=== PATIENT | male | born 1960 | race Caucasian/White ===

== ENCOUNTER 2018-09-18 12:02 | Observation (INO) ==
[2018-09-18] MEDS ORDERED: 0.9 % Sodium Chloride 1,000 ML IVC ONE (12:21)
[2018-09-18 12:46] LABS: Basophils # 0.1 K/mcL (0.0-0.2); Basophils % 0.7 %; Eosinophils # 0.1 K/mcL (0.0-0.6); Eosinophils % 1.6 %; Hematocrit 50.4 % (37.5-50.1); Hemoglobin 17.4 g/dL (12.9-16.9); Lymphocytes # 1.6 K/mcL (0.6-4.6); Lymphocytes % 19.9 %; Mean Corpuscular HGB Conc 34.5 g/dL (31.6-35.5); Mean Corpuscular Hemoglobin 29.2 pg (28.0-33.3); Mean Corpuscular Volume 84.7 fL (83.0-100.0); Mean Platelet Volume 9.9 fL (9.4-12.4); Monocytes # 0.8 K/mcL (0.0-1.3); Monocytes % 9.5 %; Neutrophils # 5.5 K/mcL (1.6-8.9); Platelet Count 234 K/mcL (140-400); Red Blood Count 5.95 M/mcL (4.19-5.50); Red Cell Distribution Width 12.4 % (11.5-14.5); Segmented Neutrophils % 67.3 %
--- NOTE | 2018-09-18 12:52 | Emergency Department Note ---
Disposition Clinical Impression: Weakness, Exertional chest pain Chest pain Qualifiers: Chest pain type: unspecified Qualified Code(s): R07.9 - Chest pain, unspecified Disposition: Admitted As Inpatient Condition: Fair Referrals: Ruel Boudreaux MD [Primary Care Provider] - Forms: ED Satisfaction Letter Time of Disposition: 16:47 Arrhythmia/Palpitations HPI - General Chief Complaint: ED Arrhythmia/Palpitations Stated Complaint: Hypertension,HHR Time Seen by Provider: 09/18/18 12:14 Source: patient Mode of arrival: ambulatory Limitations: no limitations Nursing Notes Reviewed: Yes Vital Signs Reviewed: Yes - History of Present Illness HPI Narrative: patient presents to the ED with the chief complaint of not feeling well. Reports that she started getting "sick" about 1 week ago. States he became very weak and didn't feel right. States that has progressed. Reports feeling very tired and sweaty. Has a h/o HTN and is on amlodipine/metoprolol and has been compliant. States he went to his PCP today and was sent over for further evaluation due to tachycardia and hypertension 160/100. He denies any chest pain or shortness of breath. Denies and abdominal pain but has had consistent L flank pain that is not worse with movement and no h/o kidney stones. No urinary complaints. No urinary/fecal incont. No neurological complaints in lower ext or weakness. - Related Data Home Medications Medication Instructions Recorded Confirmed Atenolol 50 mg PO BID 10/28/17 09/18/18 RX: Amlodipine Besylate 10 mg PO DAILY 09/18/18 09/18/18 Sildenafil Citrate [Revatio] 0 mg PO DAILY PRN 09/18/18 09/18/18 Allergies Allergy/AdvReac Type Severity Reaction Status Date / Time Penicillins Allergy See Verified 09/18/18 12:11 Comments Sulfa (Sulfonamide Allergy See Verified 09/18/18 12:11 Antibiotics) Comments Review of Systems: As reviewed in the HPI. All other systems reviewed are negative or normal. Past Medical History - Past Medical History Attestation: Yes The following information was validated with the patient. Source: patient Medical history: Reports: hypertension, other Psychiatric history: Reports: no psych history - Social History Smoking Status: Current every day smoker Smokeless Tobacco Status: No Alcohol use: Reports: none Drug use: Reports: none Physical Exam CONSTITUTIONAL: [ill appearing, alert and in no acute distress] EYES: [EOMI, clear conjunctiva, PERRLA] HENT: [Normocephalic, atraumatic, moist mucus membranes, normal oropharynx] NECK: [normal inspection, full ROM, trachea midline, no obvious swelling] PULMONARY: [normal lung sounds bilaterally, normal chest rise and fall, no respiratory distress or stridor, no wheezes, no rales, no rhonchi CARDIOVASCULAR: [tachycardic, regular rhythm, normal heart sounds, no murmurs, distal extremities are warm and well perfused] GASTROINSTESTINAL: [soft, non-tender, non-rigid, non-distended, no guarding, no rebound, normal bowel sounds] GENITOURINARY/RECTAL: [deferred] NEUROLOGIC: [Alert, oriented x3, normal speech, moves all extremities] EXTREMITIES: [Normal inspection, full ROM, no tenderness, no pedal edema, normal capillary refill] MUSCULOSKELETAL: [no gross deformities, atraumatic, no reproducible L flank pain but reports burning type pain] SKIN: [No cyanosis, + diaphoresis, normal color, warm, no rash] PSYCHIATRIC: [slightly anxious] Course Course Narrative: patient with hypertension and tachycardia. Having exertional symptoms. also having L flank pain. will get labs and CTA to r/o dissection. labs and imaging are back. however, patient tried to get up to go to bathroom and had repeat chest pain and got very fatigued. does raise concern over atypical ACS vs valvular incompetence. will admit for echo and cardiac workup. Vital Signs Temperature 98.4 F 09/18/18 12:10 Pulse Rate 135 09/18/18 12:10 Respiratory Rate 16 09/18/18 12:10 Blood Pressure 158/98 09/18/18 12:10 O2 Sat by Pulse Oximetry 95 09/18/18 12:10 Temperature 98.4 F 09/18/18 13:05 Pulse Rate 96 09/18/18 13:12 Respiratory Rate 20 09/18/18 13:12 Blood Pressure 164/107 09/18/18 13:12 O2 Sat by Pulse Oximetry 95 09/18/18 13:12 Oxygen Delivery Oxygen Delivery Room Air Arrhythmia/Palpitations - Medical Records Medical records reviewed: Yes I reviewed the patient's medical records. - Lab Data Lab results reviewed: Yes I reviewed the patient's lab results. Result diagrams: 09/18/18 12:21 09/18/18 12:21 Lab Results 09/18/18 09/18/18 09/18/18 Range/Units 12:21 12:21 12:21 WBC 8.1 (4.3-11.1) K/mcL RBC 5.95 H (4.19-5.50) M/mcL Hgb 17.4 H (12.9-16.9) g/dL Hct 50.4 H (37.5-50.1) % MCV 84.7 (83.0-100.0) fL MCH 29.2 (28.0-33.3) pg MCHC 34.5 (31.6-35.5) g/dL RDW 12.4 (11.5-14.5) % Plt Count 234 (140-400) K/mcL MPV 9.9 (9.4-12.4) fL Immature Gran % 1.0 (0-4) % Seg Neutrophils % 67.3 % Lymphocytes % 19.9 % Monocytes % 9.5 % Eosinophils % 1.6 % Basophils % 0.7 % Neutrophils # 5.5 (1.6-8.9) K/mcL Lymphocytes # 1.6 (0.6-4.6) K/mcL Monocytes # 0.8 (0.0-1.3) K/mcL Eosinophils # 0.1 (0.0-0.6) K/mcL Basophils # 0.1 (0.0-0.2) K/mcL PT 11.6 (9.4-12.1) Seconds INR 1.0 APTT 36.5 H (26.0-36.0) Seconds D-Dimer 282 (0-500) ng/mLFEU Sodium 137 (136-145) mEq/L Potassium 3.7 (3.5-5.1) mEq/L Chloride 103 (98-107) mEq/L Carbon Dioxide 22 L (23-29) mEq/L BUN 16 (8-23) mg/dL Creatinine 1.09 (0.70-1.30) mg/dL Est GFR ( Amer) > 60 (> 60) Est GFR (Non-Af Amer) > 60 (> 60) BUN/Creatinine Ratio 15 (6-26) Glucose 181 H (70-105) mg/dL Calculated Osmolality 290 (280-300) Lactic Acid (0.5-2.2) mmol/L Calcium 9.6 (8.6-10.3) mg/dL Troponin I < 0.03 (< 0.04) ng/mL TSH 1.658 (0.340-5.600) mcIU/mL Urine Color (Yellow) Urine Clarity (Clear) Urine pH (5.0-8.0) pH Units Ur Specific [place] (1.010-1.025) Urine Protein (Neg-Trace) mg/dL Urine Glucose (UA) (Normal) mg/dL Urine Ketones (Negative) mg/dL Urine Blood (Negative) Urine Nitrite (Negative) Urine Bilirubin (Negative) Urine Urobilinogen (Normal) mg/dL Ur Leukocyte Esterase (Negative) Urine Microscopic RBC (0-3) per hpf Urine Microscopic WBC (0-3) per hpf Ur Squamous Epith Cells (None-Few) per lpf Urine Bacteria (None-Few) per hpf Hyaline Casts (None-Few) per lpf Ur Culture Indicated? (NO) 09/18/18 09/18/18 09/18/18 Range/Units 12:21 14:15 16:13 WBC (4.3-11.1) K/mcL RBC (4.19-5.50) M/mcL Hgb (12.9-16.9) g/dL Hct (37.5-50.1) % MCV (83.0-100.0) fL MCH (28.0-33.3) pg MCHC (31.6-35.5) g/dL RDW (11.5-14.5) % Plt Count (140-400) K/mcL MPV (9.4-12.4) fL Immature Gran % (0-4) % Seg Neutrophils % % Lymphocytes % % Monocytes % % Eosinophils % % Basophils % % Neutrophils # (1.6-8.9) K/mcL Lymphocytes # (0.6-4.6) K/mcL Monocytes # (0.0-1.3) K/mcL Eosinophils # (0.0-0.6) K/mcL Basophils # (0.0-0.2) K/mcL PT (9.4-12.1) Seconds INR APTT (26.0-36.0) Seconds D-Dimer (0-500) ng/mLFEU Sodium (136-145) mEq/L Potassium (3.5-5.1) mEq/L Chloride (98-107) mEq/L Carbon Dioxide (23-29) mEq/L BUN (8-23) mg/dL Creatinine (0.70-1.30) mg/dL Est GFR ( Amer) (> 60) Est GFR (Non-Af Amer) (> 60) BUN/Creatinine Ratio (6-26) Glucose (70-105) mg/dL Calculated Osmolality (280-300) Lactic Acid 2.1 0.9 (0.5-2.2) mmol/L Calcium (8.6-10.3) mg/dL Troponin I (< 0.04) ng/mL TSH (0.340-5.600) mcIU/mL Urine Color Yellow (Yellow) Urine Clarity Clear (Clear) Urine pH 6.5 (5.0-8.0) pH Units Ur Specific [place] 1.013 (1.010-1.025) Urine Protein Negative (Neg-Trace) mg/dL Urine Glucose (UA) Normal (Normal) mg/dL Urine Ketones Negative (Negative) mg/dL Urine Blood Small H (Negative) Urine Nitrite Negative (Negative) Urine Bilirubin Negative (Negative) Urine Urobilinogen Normal (Normal) mg/dL Ur Leukocyte Esterase Negative (Negative) Urine Microscopic RBC 0-3 (0-3) per hpf Urine Microscopic WBC 0-3 (0-3) per hpf Ur Squamous Epith Cells None Seen (None-Few) per lpf Urine Bacteria None Seen (None-Few) per hpf Hyaline Casts None Seen (None-Few) per lpf Ur Culture Indicated? NO (NO) - Radiology Data Radiology results reviewed: Yes I reviewed the patient's radiology results. - EKG Data EKG attestation: Yes I reviewed and interpreted this EKG. EKG results narrative: sinus tachy, rate 116, normal axis, no ischemic changes but does have some ST depression Attestation Statement - Attestation Attestation: Resident Attestation: I examined this patient and my medical decision making was reviewed with the Resident Physician. I agree with the documented findings, disposition and treatment plan as described except to the extent set forth below. We independently had [id number] contact with the patient. Patient presents today for evaluation of tachycardia and hypertension. Patient has been not feeling well for the last several days. Body aches and fatigue. Patient was at work when they checked his heart rate and was found to be significantly elevated along with an elevated blood pressure. Patient has been in the emergency department and developed chest pain as he was trying to get up to go to the bathroom. This was his first episode of chest pain. Patient describes a squeezing in the left upper quadrant left lower chest region. Symptoms got better as he laid back in bed. EKG has changes in regards to depressions throughout the lateral leads. Overall the patient's heart rate did improve with fluids but upon evaluating and having sit up in bed his heart rate did jump up to 120 again. Overall given the patient's EKG changes and overall symptoms, he will undergo further evaluation and admission. Regular rhythm, clear to auscultation bilaterally, abdomen soft nontender palpation without guarding or rebound.
[2018-09-18 13:00] LABS: Prothrombin Time 11.6 Seconds (9.4-12.1)
[2018-09-18 13:02] LABS: Activated Partial Thrombo Time 36.5 Seconds (26.0-36.0)
[2018-09-18 13:06] LABS: BUN/Creatinine Ratio 15 (6-26); Blood Urea Nitrogen 16 mg/dL (8-23); Calcium 9.6 mg/dL (8.6-10.3); Carbon Dioxide 22 mEq/L (23-29); Chloride 103 mEq/L (98-107); Glucose 181 mg/dL (70-105); Osmolality,Calculated 290 (280-300); Potassium 3.7 mEq/L (3.5-5.1); Sodium 137 mEq/L (136-145); Troponin I < 0.03 ng/mL (< 0.04); eGFR For Non-African Americans > 60 (> 60)
[2018-09-18 13:19] LABS: Thyroid Stimulating Hormone 1.658 mcIU/mL (0.340-5.600)
[2018-09-18] MEDS ORDERED: Isovue-370 500 ML BOTTLE IVP ONE (13:19)
[2018-09-18] MEDS ORDERED: Nitroglycerin 0.4 MG TAB.SUBL SL PRN (13:56)
[2018-09-18 14:54] LABS: Bilirubin,Urine Negative (Negative); Blood,Urine Small (Negative); Clarity,Urine Clear (Clear); Color,Urine Yellow (Yellow); Glucose,Urine (UA) Normal (Normal); Ketones,Urine Negative (Negative); Leukocyte Esterase,Urine Negative (Negative); Nitrite,Urine Negative (Negative); PH,Urine 6.5 pH Units (5.0-8.0); Protein,Urine Negative (Neg-Trace); Specific Gravity,Urine 1.013 (1.010-1.025); Urobilinogen,Urine Normal (Normal)
[2018-09-18 14:58] LABS: Bacteria,Urine None Seen per hpf (None-Few); Hyaline Casts,Urine None Seen per lpf (None-Few); RBC,Urine 0-3 per hpf (0-3); Squamous Epithelial Cell,Urine None Seen per lpf (None-Few); WBC,Urine 0-3 per hpf (0-3)
[2018-09-18] MEDS ORDERED: Naloxone 0.4 MG/ML INJ IVP PRN (16:50)
--- NOTE | 2018-09-18 17:23 | Internal Med History&Physical ---
Date of Encounter: 09/18/18 Time of Encounter: 17:18 Internal Medicine - H&P: HPI Chief complaint: fatigue Admitted From: Home Plans for Post Hospital Care: Home History of present illness: Mr. Cantor is a 58 year old male PMH of HTN. Patient presented to the ED from his PCP office after his blood pressure was found to be elevated and tachycardic. Patient reports since Saturday he has been feeling extremely tired, at some point he thought he was getting through the flu. Reports subjective fever and chills. Denies focal weakness of changes in his speech. Today he decided to go to the see his PCP due to persistent generalized weakness and while in his PCP office his BP was found to be elevated BP around 160/90, which is high for him as his BP usually runs in the 110/80. He was also told that this heart rate was beating faster. and was sent to the ED. He denies light headedness, dizziness or shortness of breath. Reported one episode of chest pain 5/10 retro-esternal while walking to the bathroom in the ED, the chest discomfort lasted less than a minutes. He also reports that he has been working a lot overtime. Past Med Surg Social Fam HX - Past Medical History Medical history: hypertension, other Psychiatric history: no psych history - Past Surgical History Additional surgical history: Sinus - Social History Smoking Status: Current every day smoker Smokeless Tobacco Status: No Alcohol use: none Drug use: none Internal Medicine - H&P: Meds Atenolol 50 mg PO BID 10/28/17 [History] Amlodipine Besylate 10 mg PO DAILY 09/18/18 [History] Sildenafil Citrate [Revatio] 0 mg PO DAILY PRN 09/18/18 [History] Allergy/AdvReac Type Severity Reaction Status Date / Time Penicillins Allergy See Verified 09/18/18 12:11 Comments Sulfa (Sulfonamide Allergy See Verified 09/18/18 12:11 Antibiotics) Comments All Systems PM: A 10-system review of systems was performed and is negative for pertinent findings except as documented above in the HPI. - Constitutional Constitutional: fatigue, malaise, weakness, no anorexia, no excessive sweating, no lethargy - EENT Eyes: no change in vision Nose, mouth and throat: no change in voice - Cardiovascular Cardiovascular ROS IM: chest pain, no dyspnea, no dyspnea on exertion, no irregular heart rhythm, no lightheadedness, no orthopnea, no palpitations, no paroxysmal nocturnal dyspnea - Respiratory Respiratory: no cough, no dyspnea, no wheezing, no chest congestion, no excessive phlegm production, no change in phlegm color - Gastrointestinal Gastrointestinal: no abdominal pain, no dyspepsia, no nausea, no vomiting - Genitourinary Genitourinary ROS male: urinary hesitancy, no genital pain, no nocturia, no penile discharge, no urinary frequency, no urinary incontinence, no urinary urgency - Musculoskeletal Musculoskeletal ROS IM: no back pain, no muscle weakness - Integumentary Integumentary IM: no erythema - Neurological Neurological ROS: headache(s), no weakness - Psychiatric Psychiatric: no anxiety, no irritability - Endocrine Endocrine IM: no cold intolerance, no excessive sweating, no polydipsia, no polyphagia, no polyuria - Hematologic/Lymphatic Hematologic/Lymphatic: no easy bruising - Allergic/Immunologic Allergic/Immunologic: no GI upset with certain foods Additional comments: Rest of a 10 review of system negative. - Constitutional Vitals: Temp Pulse Resp BP Pulse Ox 98.4 F 96 20 164/107 95 09/18/18 13:05 09/18/18 13:12 09/18/18 13:12 09/18/18 13:12 09/18/18 13:12 Exam: General: Patient is alert, oriented, in mild distress due to generalized weakness Head: atraumatic, normocephalic, Eye: normal appearance, PERRL, no scleral icterus, no conjunctival injection ENT: Mucous membranes moist, normal external ear exam Respiratory: Good respiratory effort. CTA b/l, no wheezing, rales or crackles Cardiovascular: RRR, normal s1 and s2 No clicks, rubs, gallops, or murmors. Abdomen: Obese, Bowel sounds present normoactive x-4 quadrants. Abdomen is soft, nondistended. No guarding or rebound. Musculoskeletal: Spontaneously moving all extremities. no edema, no calf tenderness Skin: warm, dry, intact. Neuro: Alert and oriented x4. Sensation light touch intact. Cranial nerves 2- 12 is intact. Not aphasic, [id number] intact, Psych: Patient's affect is normal Internal Med - H&P Results - Labs CBC & Chem 7: 09/18/18 12:21 09/18/18 12:21 Labs: Short CBC 09/18/18 Range/Units 12:21 WBC 8.1 (4.3-11.1) K/mcL Hgb 17.4 H (12.9-16.9) g/dL Hct 50.4 H (37.5-50.1) % Plt Count 234 (140-400) K/mcL Neutrophils # 5.5 (1.6-8.9) K/mcL BMP 09/18/18 12:21 Sodium 137 Potassium 3.7 Chloride 103 Carbon Dioxide 22 L BUN 16 Creatinine 1.09 Glucose 181 H Calcium 9.6 Cardiac Enzymes 09/18/18 Range/Units 12:21 Troponin I < 0.03 (< 0.04) ng/mL Urine 09/18/18 Range/Units 14:15 Urine Color Yellow (Yellow) Urine Clarity Clear (Clear) Urine pH 6.5 (5.0-8.0) pH Units Ur Specific [place] 1.013 (1.010-1.025) Urine Protein Negative (Neg-Trace) mg/dL Urine Glucose (UA) Normal (Normal) mg/dL - Impressions ITS Impressions Chest X-Ray 09/18/18 12:22 IMPRESSION: No acute findings D/ / Nelia Swartz MD / Nelia Swartz MD Interpreting Provider: Nelia Swartz MD Dissection 09/18/18 13:19 IMPRESSION: 1. No evidence of aortic dissection or aneurysm 2. No evidence of pulmonary embolism 3. Mosaic lung attenuation suggests small airways obstructive disease 4. Colonic diverticulosis with no evidence of diverticulitis 5. Wall thickening of the urinary bladder likely due to chronic bladder outlet obstruction. Correlate with any clinical findings of cystitis D/ / Boston Terry MD / Boston Terry MD Interpreting Provider: Boston Terry MD - Diagnostic Studies Chest x-ray Status: image reviewed by me (no acute findings ) - Assessment and Plan (1) Hypertension Current Visit: Yes Status: Acute Assessment and plan: will resume patient's home medications. on amlodipine 10mg/PO daily and atenolol 50mg/PO BID telemetry monitoring tsh ordered Qualifiers: Hypertension type: unspecified Qualified Code(s): I10 - Essential (primary) hypertension (2) DVT prophylaxis Current Visit: Yes Status: Acute Assessment and plan: started on heparin subq (3) Chest pain Current Visit: Yes Status: Acute Assessment and plan: patient reported of chest discomfort. serial troponin and telemetry monitoring ordered nitroglycerin 0.4mg SubL Q5min every 15 minutes x3. Qualifiers: Chest pain type: unspecified Qualified Code(s): R07.9 - Chest pain, unspecified (4) Weakness Current Visit: Yes Status: Acute Assessment and plan: Respiratory panel ordered. PT/OT started on LR@75ml/hr x2 litters - Time Spent With Patient Total time spent is greater than 50% in coordination of care (as documented) at patient's floor/unit and/or counseling patient: Greater than 35 minutes (45)
[2018-09-18] MEDS: Ringers Solution, Lactated 1,000 ML IVC SCH (21:33)
[2018-09-18] MEDS: traMADol 50 MG TABLET PO PRN (21:34)
[2018-09-18] MEDS: *HR* Heparin 5,000 UNIT/ML VIAL SQ SCH (21:35)
[2018-09-18 23:02] LABS: Adenovirus Not Detected (Not Detect); Bordetella Pertussis Not Detected (Not Detect); Chlamydophila pneumoniae Not Detected (Not Detect); Coronavirus 229E Not Detected (Not Detect); Coronavirus HKU1 Not Detected (Not Detect); Coronavirus NL63 Not Detected (Not Detect); Coronavirus OC43 Not Detected (Not Detect); Human Metapneumovirus Not Detected (Not Detect); Human Rhinovirus/Enterovirus Not Detected (Not Detect); Influenza A Subtype 2009 H1 Not Detected (Not Detect); Influenza A Untypeable Not Detected (Not Detect); Influenza B Not Detected (Not Detect); Mycoplasma pneumoniae Not Detected (Not Detect); Parainfluenza Virus 1 Not Detected (Not Detect); Parainfluenza Virus 2 Not Detected (Not Detect); Parainfluenza Virus 3 Not Detected (Not Detect); Parainfluenza Virus 4 Not Detected (Not Detect); Respiratory Syncytial Virus Not Detected (Not Detect)
--- NOTE | 2018-09-18 23:25 | Electrocardiograph Report ---
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
[2018-09-19] MEDS: *HR* Heparin 5,000 UNIT/ML VIAL SQ SCH ×2 (05:36→18:15)
[2018-09-19 06:27] LABS: Basophils # 0.1 K/mcL (0.0-0.2); Eosinophils # 0.3 K/mcL (0.0-0.6); Hematocrit 46.4 % (37.5-50.1); Immature Granulocytes % 0.8 % (0-4); Lymphocytes # 2.7 K/mcL (0.6-4.6); Lymphocytes % 33.3 %; Mean Corpuscular HGB Conc 33.2 g/dL (31.6-35.5); Mean Corpuscular Hemoglobin 28.7 pg (28.0-33.3); Mean Corpuscular Volume 86.4 fL (83.0-100.0); Mean Platelet Volume 9.9 fL (9.4-12.4); Monocytes # 0.8 K/mcL (0.0-1.3); Monocytes % 10.6 %; Platelet Count 222 K/mcL (140-400); Red Blood Count 5.37 M/mcL (4.19-5.50); Red Cell Distribution Width 12.7 % (11.5-14.5); Segmented Neutrophils % 50.3 %
[2018-09-19 06:31] LABS: Hemoglobin 15.4 g/dL (12.9-16.9)
[2018-09-19 07:15] LABS: BUN/Creatinine Ratio 16 (6-26); Blood Urea Nitrogen 16 mg/dL (8-23); Calcium 8.9 mg/dL (8.6-10.3); Carbon Dioxide 26 mEq/L (23-29); Chloride 105 mEq/L (98-107); Glucose 129 mg/dL (70-105); Magnesium 2.1 mg/dL (1.6-2.6); Osmolality,Calculated 291 (280-300); Phosphorous 3.8 mg/dL (2.7-4.5); Potassium 4.3 mEq/L (3.5-5.1); Sodium 139 mEq/L (136-145); eGFR For Non-African Americans > 60 (> 60)
[2018-09-19] MEDS: amLODIPine 5 MG TABLET PO SCH (08:56)
[2018-09-19] MEDS: traMADol 50 MG TABLET PO PRN (08:59)
--- NOTE | 2018-09-19 15:46 | Discharge Summary ---
- NOTES TO OUTPATIENT PROVIDER Notes to Outpatient Provider: Echo completed EF 55% moderate concentric left ventricular hypertrophy will need follow-up as outpatient-has had elevated blood pressure- added norvasc - may need a third agent -Trop negative offered stress test but declined would like as out patient -BP log as outpatient Orders not resulted at time of discharge: Pending orders 09/19/18 15:28 EV echocardiogram Routine Date of Encounter: 09/20/18 Time of Encounter: 09:05 - Discharge Diagnosis (1) Chest pain Priority: Primary Status: Acute Qualifiers: Chest pain type: unspecified Qualified Code(s): R07.9 - Chest pain, unspecified (2) Weakness Priority: Secondary Status: Acute (3) Hypertension Priority: Primary Status: Acute Qualifiers: Hypertension type: unspecified Qualified Code(s): I10 - Essential (primary) hypertension Hospital course: Mr. Cantor is a 58 year old male past medical history of hypertension presented from his PCP office after he was found to have elevated blood pressure. He states that he has been experiencing general malaise and tired he thought he had the flu. He reported subjective fevers and chills he did stay home from work and he went to his PCP due to the symptoms. While at his PCP was noted he had elevated blood pressure 160/90. He was sent to the ED for evaluation while in the ED he did report 1 episode of 5 out of 10 midsternal chest pain while walking in the bathroom which lasted less than a minute and resolved on its own. Troponins were negative [address]-T wave abnormalities echo is pending at this time. Patient blood pressure medicine was increased atenolol 50 mg twice a day amlodipine 10 mg daily. His blood pressure has improved and patient states he feels much better. Advised patient to monitor blood pressure at home echo will be completed and he can follow-up with his primary care provider once Echo completed offered stress test patient declined and would like to complete as outpatient Patient verbalized understanding of follow up He is hemodynamically stable and ready for discharge - Time Spent with Patient Total time spent providing and/or coordinating discharge services: - Discharge Medications Prescriptions: New Atenolol [Tenormin] 50 mg PO BID tablet amLODIPine [Norvasc] 10 mg PO DAILY tablet amLODIPine [Norvasc] 10 mg PO DAILY #60 tablet Continue Atenolol 50 mg PO BID Discontinued Amlodipine Besylate 10 mg PO DAILY Home Medications: Atenolol 50 mg PO BID 10/28/17 [History] Atenolol [Tenormin] 50 mg PO BID tablet 09/19/18 [Rx] amLODIPine [Norvasc] 10 mg PO DAILY tablet 09/19/18 [Rx] amLODIPine [Norvasc] 10 mg PO DAILY #60 tablet 09/20/18 [Rx] Allergies/Adverse Reactions: Allergy/AdvReac Type Severity Reaction Status Date / Time Penicillins Allergy See Verified 09/18/18 12:11 Comments Sulfa (Sulfonamide Allergy See Verified 09/18/18 12:11 Antibiotics) Comments Date of admission: 09/18/18 20:02 Primary care physician: Ruel Boudreaux MD Discharging clinician: Latanya Barr Anticipated date of discharge: 09/19/18 - Constitutional Vitals: Temp Pulse Resp BP Pulse Ox 98.3 F 64 16 137/83 95 09/19/18 10:55 09/19/18 10:55 09/19/18 10:55 09/19/18 13:19 09/19/18 10:55 Exam: Skin: Free of rash and discoloration. Eyes: Sclera is white. There is no discharge from eyes. ENMT: Oral/pharyngeal mucosa is normal in appearance. There is no discharge from nose or ears. Respiratory: Normal breath sounds with no crackles and wheezes bilaterally. CV: Heart is regular with no gallop or murmur. GI: Abdomen is flat and soft with no palpable mass or visceromegaly. : There is no tenderness in patient's flanks bilaterally. Neuro exam: He has good strength in upper and lower extremities. He has normal eye movements. Psychiatric: He has normal affect. His thought process is appropriate to the situation. - Patient Status Disposition: Home, Self-Care Condition: Fair Functional capacity at discharge: independent ambulation Overall status at discharge: patient is back to baseline - Discharge Instructions Instructions: Chest Pain (DC), Chronic Hypertension (DC) Follow Up With: Ruel Boudreaux MD [Primary Care Provider] - (Please contact office after discharge to schedule and appointment. Appointment should be within 5-7 days of discharge. Thank you. ) Additional Instructions: monitor bp daily keep log - Diet and Activity Activity: increase activity as tolerated Diet: advance to your usual diet
--- NOTE | 2018-09-19 18:31 | Internal Med Progress Note ---
Hospitalist Progress Note - Encounter Date of Encounter: 09/19/18 Time of Encounter: 18:29 - Subjective Interval History: Patient was seen and examined at bedside currently awaiting echo. Discuss outpatient echo with the patient however that will not be completed for several weeks patient would like to stay in the hospital to complete echo. We will mon itor overnight and completely echo hopefully this evening or early tomorrow morning - Exam Vitals: Temp Pulse Resp BP Pulse Ox 97.9 F 70 16 148/82 96 09/19/18 16:09 09/19/18 16:09 09/19/18 16:09 09/19/18 17:29 09/19/18 16:09 Exam: Skin: Free of rash and discoloration. Eyes: Sclera is white. There is no discharge from eyes. ENMT: Oral/pharyngeal mucosa is normal in appearance. There is no discharge from nose or ears. Respiratory: Normal breath sounds with no crackles and wheezes bilaterally. CV: Heart is regular with no gallop or murmur. GI: Abdomen is flat and soft with no palpable mass or visceromegaly. : There is no tenderness in patient's flanks bilaterally. Neuro exam: He has good strength in upper and lower extremities. He has normal eye movements. Psychiatric: He has normal affect. His thought process is appropriate to the situation. - Assessment and Plan (1) Chest pain Current Visit: Yes Status: Acute Assessment and Plan: patient reported of chest discomfort x1 while up going to the bathroom-no more chest pain foist at this time serial troponin are negative 3 telemetry monitoring ordered nitroglycerin 0.4mg SubL Q5min every 15 minutes x3. We will obtain cardiac echo suspect chest pain may be related to hypertension (2) Weakness Current Visit: Yes Status: Acute Assessment and Plan: Respiratory panel negative PT/OT -with no needs Patient states she feels much better We will obtain cardiac echo (3) Hypertension Current Visit: Yes Status: Acute Assessment and Plan: Blood pressure stable at this time continue with atenolol 50 mg by mouth twice a day as well as amlodipine 10 mg by mouth daily telemetry monitoring tsh normal - Time Spent with Patient Total time spent is greater than 50% in coordination of care (as documented) at patient's floor/unit and/or counseling patient: Internal Medicine: Result - Labs CBC & Chem 7: 09/19/18 05:53 09/19/18 05:53 Labs: Short CBC 09/19/18 Range/Units 05:53 WBC 8.0 (4.3-11.1) K/mcL Hgb 15.4 D (12.9-16.9) g/dL Hct 46.4 (37.5-50.1) % Plt Count 222 (140-400) K/mcL Neutrophils # 4.0 (1.6-8.9) K/mcL BMP 09/19/18 05:53 Sodium 139 Potassium 4.3 Chloride 105 Carbon Dioxide 26 BUN 16 Creatinine 0.97 Glucose 129 H Calcium 8.9 Cardiac Enzymes 09/18/18 09/18/18 Range/Units 17:35 22:51 Troponin I < 0.03 < 0.03 (< 0.04) ng/mL - ABG Interpretation ABG results: PT/INR, D-dimer PT 11.6 Seconds (9.4-12.1) 09/18/18 12:21 D-Dimer 282 ng/mLFEU (0-500) 09/18/18 12:21 Consult Discharge Plan - Plan Instructions: Chest Pain (DC), Chronic Hypertension (DC) Referrals: Boudreaux,Ruel Nieves MD [Primary Care Provider] - (Please contact office after discharge to schedule and appointment. Appointment should be within 5-7 days of discharge. Thank you. ) (1) Chest pain Qualifiers: Chest pain type: unspecified Qualified Code(s): R07.9 - Chest pain, unspecified (3) Hypertension Qualifiers: Hypertension type: unspecified Qualified Code(s): I10 - Essential (primary) hypertension
[2018-09-19] MEDS ORDERED: Perflutren Lipid Microsphere 1.3 ML in 0.9 % Sodium Chloride 8.7 ML IVP ONE (21:16)
[2018-09-19] MEDS: Ringers Solution, Lactated 1,000 ML IVC SCH (22:55)
--- NOTE | 2018-09-20 03:28 | Electrocardiograph Report ---
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
[2018-09-20] MEDS: *HR* Heparin 5,000 UNIT/ML VIAL SQ SCH (05:58)
[2018-09-20] MEDS: amLODIPine 5 MG TABLET PO SCH (08:40)
[2018-09-20 11:18] VITALS: BP 144/89
== END 2018-09-20 12:55 | disposition home or self-care (01) ==
LOC: EMEROOARM 12:02 → 3BNU 12:02
PROVIDERS: ADMIT Internal Medicine; ATTEND Internal Medicine

== ENCOUNTER 2021-09-13 15:15 | Inpatient (IN) ==
[2021-09-13] MEDS: 0.9 % Sodium Chloride 1,000 ML IVC SCH ×2 (15:48→16:50)
[2021-09-13 15:57] LABS: Basophils # 0.1 K/mcL (0.0-0.2); Basophils % 0.3 %; Hematocrit 46.5 % (37.5-50.1); Hemoglobin 16.1 g/dL (12.9-16.9); Immature Granulocytes % 0.8 % (0-4); Lymphocytes # 0.8 K/mcL (0.6-4.6); Lymphocytes % 4.6 %; Mean Corpuscular HGB Conc 34.6 g/dL (31.6-35.5); Mean Corpuscular Hemoglobin 29.3 pg (28.0-33.3); Mean Corpuscular Volume 84.5 fL (83.0-100.0); Monocytes # 1.8 K/mcL (0.0-1.3); Monocytes % 11.1 %; Neutrophils # 13.8 K/mcL (1.6-8.9); Platelet Count 203 K/mcL (140-400); Red Cell Distribution Width 12.6 % (11.5-14.5); Segmented Neutrophils % 83.2 %; White Blood Count 16.6 K/mcL (4.3-11.1)
[2021-09-13] MEDS ORDERED: Isovue-370 500 ML BOTTLE IVP ONE (16:22)
[2021-09-13] MEDS ORDERED: Piperacillin/Tazobactam 3.375 GM in 0.9 % Sodium Chloride Mini Bag 100 ML IVPB ONE (16:26)
[2021-09-13 16:43] LABS: Alanine Aminotransferase 22 Units/L (7-52); Albumin 4.1 g/dL (3.5-5.7); Albumin/Globulin Ratio 1.2 (1.1-2.2); Alkaline Phosphatase 60 Units/L (34-104); Aspartate Amino Transferase 16 Units/L (13-39); BUN/Creatinine Ratio 13 (6-26); Bilirubin,Direct 0.5 mg/dL (0.0-0.2); Bilirubin,Indirect 2.5 mg/dL (0.0-1.0); Blood Urea Nitrogen 16 mg/dL (8-23); Calcium 9.2 mg/dL (8.6-10.3); Carbon Dioxide 22 mEq/L (23-29); Chloride 93 mEq/L (98-107); Globulin 3.3 g/dL (2.4-3.5); Glucose 293 mg/dL (70-105); Magnesium 1.6 mg/dL (1.6-2.6); Osmolality,Calculated 276 (280-300); Phosphorous 2.6 mg/dL (2.7-4.5); Potassium 4.1 mEq/L (3.5-5.1); Sodium 127 mEq/L (136-145); Total Protein 7.4 g/dL (6.4-8.9); Troponin I < 0.03 ng/mL (< 0.04); eGFR For African Americans > 60 (> 60); eGFR For Non-African Americans 59 (> 60)
[2021-09-13 16:43] LABS: INR 1.3; Prothrombin Time 14.1 Seconds (9.4-12.1)
[2021-09-13 17:25] LABS: Bacteria,Urine Few per hpf (None-Few); Bilirubin,Urine Negative (Negative); Blood,Urine Large (Negative); Clarity,Urine Turbid (Clear); Color,Urine Light-Orange (Yellow); Glucose,Urine (UA) 100 mg/dL (Normal); Granular Casts,Urine Few per lpf (None Seen); Ketones,Urine 10 mg/dL (Negative); Leukocyte Esterase,Urine Large (Negative); Mucus,Urine Moderate per lpf (None-Few); Nitrite,Urine Negative (Negative); Protein,Urine 200 mg/dL (Neg-Trace); RBC,Urine TNTC per hpf (0-3); Specific Gravity,Urine 1.023 (1.010-1.025); WBC,Urine TNTC per hpf (0-3)
[2021-09-13] MEDS ORDERED: Melatonin 3 MG TABLET PO PRN (18:50)
[2021-09-13] MEDS ORDERED: Ondansetron ODT 4 MG TAB.RAPDIS SL PRN (18:50)
[2021-09-13] MEDS ORDERED: Naloxone 0.4 MG/ML INJ IVP PRN (18:50)
[2021-09-13 20:39] LABS: Influenza A PCR Negative (Negative); Influenza B PCR Negative (Negative); Resp. Syncytial Virus PCR Negative (Negative)
[2021-09-13 20:41] LABS: SARS-CoV-2 by PCR (In House) Negative (Negative)
[2021-09-13 20:49] LABS: INR 1.2; Prothrombin Time 13.9 Seconds (9.4-12.1)
[2021-09-13 20:51] LABS: Activated Partial Thrombo Time 34.5 Seconds (26.0-36.0)
[2021-09-13] MEDS ORDERED: Ringers Solution, Lactated 500 ML IVC ONE (21:00)
[2021-09-13] MEDS: Acetaminophen 325 MG TABLET PO PRN (23:24)
[2021-09-13] MEDS ORDERED: 0.9 % Sodium Chloride 1,000 ML IVC SCH (23:30)
[2021-09-14] MEDS ORDERED: Vancomycin 1,750 MG/517.5 ML IV.SOLN IVPB SCH
[2021-09-14] MEDS: Piperacillin/Tazobactam 3.375 GM in 0.9 % Sodium Chloride Mini Bag 100 ML IVPB SCH ×3 (00:25→15:58)
[2021-09-14] MEDS: Vancomycin 1,500 MG/265 ML IV.SOLN IVPB SCH ×2 (00:25→13:42)
[2021-09-14 01:16] LABS: Basophils % 0.2 %; Hematocrit 41.4 % (37.5-50.1); Immature Granulocytes % 0.8 % (0-4); Lymphocytes # 1.3 K/mcL (0.6-4.6); Lymphocytes % 9.2 %; Mean Corpuscular HGB Conc 34.5 g/dL (31.6-35.5); Mean Corpuscular Hemoglobin 29.6 pg (28.0-33.3); Mean Corpuscular Volume 85.7 fL (83.0-100.0); Mean Platelet Volume 9.9 fL (9.4-12.4); Monocytes # 1.6 K/mcL (0.0-1.3); Monocytes % 11.6 %; Platelet Count 169 K/mcL (140-400); Red Blood Count 4.83 M/mcL (4.19-5.50); Red Cell Distribution Width 12.9 % (11.5-14.5); Segmented Neutrophils % 78.2 %; White Blood Count 14.1 K/mcL (4.3-11.1)
[2021-09-14 01:18] LABS: Hemoglobin 14.3 g/dL (12.9-16.9)
[2021-09-14 01:35] LABS: BUN/Creatinine Ratio 9 (6-26); Blood Urea Nitrogen 13 mg/dL (8-23); Calcium 8.2 mg/dL (8.6-10.3); Carbon Dioxide 26 mEq/L (23-29); Chloride 99 mEq/L (98-107); Glucose 247 mg/dL (70-105); Magnesium 1.6 mg/dL (1.6-2.6); Osmolality,Calculated 282 (280-300); Phosphorous 2.6 mg/dL (2.7-4.5); Potassium 4.2 mEq/L (3.5-5.1); Sodium 132 mEq/L (136-145); eGFR For African Americans > 60 (> 60); eGFR For Non-African Americans 51 (> 60)
[2021-09-14] MEDS ORDERED: Magnesium Sulfate 1 GM/102 ML PIGGYBACK IVPB ONE (04:29)
[2021-09-14] MEDS: Acetaminophen 325 MG TABLET PO PRN ×2 (07:38→16:15)
[2021-09-14] MEDS: atenoloL 50 MG TABLET PO SCH (07:46)
[2021-09-14] MEDS: amLODIPine 5 MG TABLET PO SCH (13:42)
[2021-09-14] MEDS ORDERED: D5% in Water 1,000 ML IVC PRN (16:07)
[2021-09-14] MEDS ORDERED: *HR* Dextrose 50 % in Water (Syg) 50 ML SYRINGE IVP PRN (16:07)
[2021-09-14] MEDS ORDERED: Dextrose 4 GM Chewable Tablets PO PRN ×2 (16:07)
[2021-09-14] MEDS ORDERED: *HR* Metoprolol 5 MG/5 ML VIAL IVP PRN (16:09)
[2021-09-14] MEDS: Insulin LISPRO 300 UNITS/3 ML VIAL SUBQ SCH ×2 (17:39→20:50)
[2021-09-14 19:12] LABS: A.calcoaceticus-baumannii cplx Not Detected (Not Detect); Bacteroides fragilis by PCR Not Detected (Not Detect); CTX-M ESBL Gene Not Detected (Not Detect); Candida albicans by PCR Not Detected (Not Detect); Candida auris by PCR Not Detected (Not Detect); Enterobacter cloacae Cmplx PCR Not Detected (Not Detect); Enterobacterales by PCR Not Detected (Not Detect); Enterococcus faecium by PCR Not Detected (Not Detect); Escherichia coli by PCR Not Detected (Not Detect); IMP Carbapenem-Resist Gene Not Detected (Not Detect); Klebs. pneumoniae group by PCR Not Detected (Not Detect); Klebsiella aerogenes by PCR Not Detected (Not Detect); Klebsiella oxytoca by PCR Not Detected (Not Detect); NDM Carbapenem-Resist Gene Not Detected (Not Detect); OXA-48-like Carbap-Resist Gene Not Detected (Not Detect); Proteus by PCR Not Detected (Not Detect); Pseudomonas aeruginosa by PCR Not Detected (Not Detect); Salmonella species by PCR Not Detected (Not Detect); Serratia marcescens by PCR Not Detected (Not Detect); Staph epidermidis by PCR Not Detected (Not Detect); Staph lugdunensis by PCR Not Detected (Not Detect); Staphylococcus aureus by PCR Not Detected (Not Detect); Staphylococcus by PCR Not Detected (Not Detect); Stenotrophomonas maltophilia Not Detected (Not Detect); Streptococcus agalactiae(B)PCR Not Detected (Not Detect); Streptococcus by PCR Not Detected (Not Detect); Streptococcus pneumoniae PCR Not Detected (Not Detect); Streptococcus pyogenes (A) PCR Not Detected (Not Detect); VIM Carbapenem-Resist Gene Not Detected (Not Detect); blaKPC Carbapenem-Resist Gene Not Detected (Not Detect); mcr-1 Colistin-Resist Gene Not Detected (Not Detect); mecA/C & MREJ (MRSA) Gene Not Detected (Not Detect); mecA/C Methicillin-Resist Gene Not Detected (Not Detect); vanA/B Vancomycin-Resist Genes Not Detected (Not Detect)
[2021-09-14 19:13] LABS: Candida glabrata by PCR Not Detected (Not Detect); Candida krusei by PCR Not Detected (Not Detect); Candida parapsilosis by PCR Not Detected (Not Detect); Candida tropicalis by PCR Not Detected (Not Detect); Crypto. neoformans/gattii PCR Not Detected (Not Detect); Enterococcus faecalis by PCR DETECTED (Not Detect)
[2021-09-14] MEDS ORDERED: Acetaminophen IV 1,000 MG/100 ML BAG IVPB ONE (21:19)
[2021-09-15] MEDS: Piperacillin/Tazobactam 3.375 GM in 0.9 % Sodium Chloride Mini Bag 100 ML IVPB SCH ×3 (01:04→09:56)
[2021-09-15] MEDS ORDERED: Vancomycin 1,500 MG/265 ML IV.SOLN IVPB SCH (02:00)
[2021-09-15 03:05] LABS: Basophils % 0.4 %; Eosinophils % 0.1 %; Hematocrit 43.8 % (37.5-50.1); Hemoglobin 14.9 g/dL (12.9-16.9); Immature Granulocytes % 0.6 % (0-4); Lymphocytes # 1.1 K/mcL (0.6-4.6); Lymphocytes % 10.1 %; Mean Corpuscular Hemoglobin 29.3 pg (28.0-33.3); Mean Corpuscular Volume 86.1 fL (83.0-100.0); Mean Platelet Volume 10.4 fL (9.4-12.4); Monocytes # 1.2 K/mcL (0.0-1.3); Monocytes % 10.7 %; Neutrophils # 8.7 K/mcL (1.6-8.9); Platelet Count 167 K/mcL (140-400); Red Blood Count 5.09 M/mcL (4.19-5.50); Red Cell Distribution Width 12.9 % (11.5-14.5); Segmented Neutrophils % 78.1 %; White Blood Count 11.1 K/mcL (4.3-11.1)
[2021-09-15 03:21] LABS: Alanine Aminotransferase 21 Units/L (7-52); Albumin 3.6 g/dL (3.5-5.7); Albumin/Globulin Ratio 1.1 (1.1-2.2); Alkaline Phosphatase 50 Units/L (34-104); Aspartate Amino Transferase 16 Units/L (13-39); BUN/Creatinine Ratio 9 (6-26); Bilirubin,Total 1.5 mg/dL (0.3-1.0); Blood Urea Nitrogen 10 mg/dL (8-23); Calcium 8.7 mg/dL (8.6-10.3); Carbon Dioxide 28 mEq/L (23-29); Chloride 97 mEq/L (98-107); Globulin 3.2 g/dL (2.4-3.5); Glucose 170 mg/dL (70-105); Osmolality,Calculated 279 (280-300); Potassium 3.5 mEq/L (3.5-5.1); Sodium 133 mEq/L (136-145); Total Protein 6.8 g/dL (6.4-8.9); eGFR For African Americans > 60 (> 60); eGFR For Non-African Americans > 60 (> 60)
[2021-09-15] MEDS: amLODIPine 5 MG TABLET PO SCH (07:57)
[2021-09-15] MEDS: atenoloL 50 MG TABLET PO SCH (07:57)
[2021-09-15] MEDS: Insulin LISPRO 300 UNITS/3 ML VIAL SUBQ SCH ×4 (08:02→23:21)
[2021-09-15] MEDS: 0.9 % Sodium Chloride 1,000 ML IVC SCH ×2 (09:57→20:00)
[2021-09-15] MEDS: Vancomycin 1,750 MG/517.5 ML IV.SOLN IVPB SCH (14:43)
[2021-09-16] MEDS: Vancomycin 1,750 MG/517.5 ML IV.SOLN IVPB SCH ×2 (02:39→14:35)
[2021-09-16 03:47] LABS: Alanine Aminotransferase 17 Units/L (7-52); Albumin 2.8 g/dL (3.5-5.7); Albumin/Globulin Ratio 1.1 (1.1-2.2); Alkaline Phosphatase 38 Units/L (34-104); Aspartate Amino Transferase 13 Units/L (13-39); BUN/Creatinine Ratio 10 (6-26); Bilirubin,Total 0.8 mg/dL (0.3-1.0); Blood Urea Nitrogen 9 mg/dL (8-23); Calcium 7.6 mg/dL (8.6-10.3); Carbon Dioxide 26 mEq/L (23-29); Chloride 101 mEq/L (98-107); Globulin 2.5 g/dL (2.4-3.5); Glucose 201 mg/dL (70-105); Osmolality,Calculated 278 (280-300); Sodium 132 mEq/L (136-145); Total Protein 5.3 g/dL (6.4-8.9); eGFR For African Americans > 60 (> 60); eGFR For Non-African Americans > 60 (> 60)
[2021-09-16 03:53] LABS: Basophils % 0.4 %; Eosinophils % 0.5 %; Hematocrit 35.3 % (37.5-50.1); Immature Granulocytes % 0.5 % (0-4); Lymphocytes # 1.2 K/mcL (0.6-4.6); Lymphocytes % 15.1 %; Mean Corpuscular HGB Conc 34.6 g/dL (31.6-35.5); Mean Corpuscular Hemoglobin 29.4 pg (28.0-33.3); Mean Corpuscular Volume 85.1 fL (83.0-100.0); Mean Platelet Volume 10.3 fL (9.4-12.4); Monocytes # 1.3 K/mcL (0.0-1.3); Monocytes % 16.6 %; Neutrophils # 5.3 K/mcL (1.6-8.9); Platelet Count 143 K/mcL (140-400); Red Blood Count 4.15 M/mcL (4.19-5.50); Red Cell Distribution Width 12.8 % (11.5-14.5); Segmented Neutrophils % 66.9 %; White Blood Count 7.9 K/mcL (4.3-11.1)
[2021-09-16 03:55] LABS: Hemoglobin 12.2 g/dL (12.9-16.9)
[2021-09-16 04:18] LABS: Platelet Estimate Normal (Normal); Reactive Lymphocytes Present (Not Present)
[2021-09-16] MEDS: 0.9 % Sodium Chloride 1,000 ML IVC SCH ×2 (06:22→17:09)
[2021-09-16] MEDS: Insulin LISPRO 300 UNITS/3 ML VIAL SUBQ SCH ×4 (09:15→21:26)
[2021-09-16] MEDS: amLODIPine 5 MG TABLET PO SCH (09:55)
[2021-09-16] MEDS: atenoloL 50 MG TABLET PO SCH (09:55)
[2021-09-16] MEDS: Acetaminophen 325 MG TABLET PO PRN (21:25)
[2021-09-17 01:34] LABS: Basophils % 0.4 %; Eosinophils # 0.1 K/mcL (0.0-0.6); Eosinophils % 0.9 %; Hematocrit 37.1 % (37.5-50.1); Hemoglobin 12.5 g/dL (12.9-16.9); Immature Granulocytes % 0.7 % (0-4); Lymphocytes # 1.6 K/mcL (0.6-4.6); Lymphocytes % 19.2 %; Mean Corpuscular HGB Conc 33.7 g/dL (31.6-35.5); Mean Corpuscular Hemoglobin 28.9 pg (28.0-33.3); Mean Corpuscular Volume 85.9 fL (83.0-100.0); Mean Platelet Volume 10.4 fL (9.4-12.4); Monocytes # 1.2 K/mcL (0.0-1.3); Monocytes % 14.1 %; Neutrophils # 5.3 K/mcL (1.6-8.9); Platelet Count 164 K/mcL (140-400); Red Blood Count 4.32 M/mcL (4.19-5.50); Red Cell Distribution Width 12.8 % (11.5-14.5); Segmented Neutrophils % 64.7 %; White Blood Count 8.2 K/mcL (4.3-11.1)
[2021-09-17 01:52] LABS: Alanine Aminotransferase 17 Units/L (7-52); Alkaline Phosphatase 40 Units/L (34-104); Aspartate Amino Transferase 12 Units/L (13-39); BUN/Creatinine Ratio 9 (6-26); Bilirubin,Total 0.8 mg/dL (0.3-1.0); Blood Urea Nitrogen 8 mg/dL (8-23); Calcium 8.1 mg/dL (8.6-10.3); Carbon Dioxide 24 mEq/L (23-29); Chloride 104 mEq/L (98-107); Glucose 209 mg/dL (70-105); Osmolality,Calculated 282 (280-300); Potassium 3.6 mEq/L (3.5-5.1); Sodium 134 mEq/L (136-145); Total Protein 5.6 g/dL (6.4-8.9); eGFR For African Americans > 60 (> 60); eGFR For Non-African Americans > 60 (> 60)
[2021-09-17] MEDS: Vancomycin 1,750 MG/517.5 ML IV.SOLN IVPB SCH ×2 (03:25→14:39)
[2021-09-17 04:06] LABS: Albumin 2.9 g/dL (3.5-5.7); Albumin/Globulin Ratio 1.1 (1.1-2.2); Globulin 2.7 g/dL (2.4-3.5)
[2021-09-17] MEDS: Insulin LISPRO 300 UNITS/3 ML VIAL SUBQ SCH ×4 (07:51→20:31)
[2021-09-17] MEDS: amLODIPine 5 MG TABLET PO SCH (07:52)
[2021-09-17] MEDS: atenoloL 50 MG TABLET PO SCH (07:52)
[2021-09-18] MEDS: Vancomycin 1,750 MG/517.5 ML IV.SOLN IVPB SCH (01:58)
[2021-09-18 06:02] LABS: Basophils % 0.5 %; Eosinophils # 0.1 K/mcL (0.0-0.6); Eosinophils % 1.6 %; Hematocrit 35.1 % (37.5-50.1); Hemoglobin 11.8 g/dL (12.9-16.9); Immature Granulocytes % 1.1 % (0-4); Lymphocytes # 1.5 K/mcL (0.6-4.6); Lymphocytes % 19.9 %; Mean Corpuscular HGB Conc 33.6 g/dL (31.6-35.5); Mean Corpuscular Hemoglobin 28.4 pg (28.0-33.3); Mean Corpuscular Volume 84.4 fL (83.0-100.0); Mean Platelet Volume 10.7 fL (9.4-12.4); Monocytes # 0.9 K/mcL (0.0-1.3); Neutrophils # 4.8 K/mcL (1.6-8.9); Platelet Count 200 K/mcL (140-400); Red Blood Count 4.16 M/mcL (4.19-5.50); Red Cell Distribution Width 12.8 % (11.5-14.5); Segmented Neutrophils % 64.9 %; White Blood Count 7.4 K/mcL (4.3-11.1)
[2021-09-18 06:21] LABS: Alanine Aminotransferase 21 Units/L (7-52); Albumin 2.9 g/dL (3.5-5.7); Albumin/Globulin Ratio 1.1 (1.1-2.2); Alkaline Phosphatase 42 Units/L (34-104); Aspartate Amino Transferase 15 Units/L (13-39); BUN/Creatinine Ratio 10 (6-26); Bilirubin,Total 0.8 mg/dL (0.3-1.0); Blood Urea Nitrogen 8 mg/dL (8-23); Calcium 7.8 mg/dL (8.6-10.3); Carbon Dioxide 25 mEq/L (23-29); Chloride 102 mEq/L (98-107); Globulin 2.6 g/dL (2.4-3.5); Glucose 223 mg/dL (70-105); Osmolality,Calculated 285 (280-300); Sodium 135 mEq/L (136-145); Total Protein 5.5 g/dL (6.4-8.9); eGFR For African Americans > 60 (> 60); eGFR For Non-African Americans > 60 (> 60)
[2021-09-18] MEDS: Insulin LISPRO 300 UNITS/3 ML VIAL SUBQ SCH ×2 (07:56→11:46)
[2021-09-18] MEDS: amLODIPine 5 MG TABLET PO SCH (08:41)
[2021-09-18] MEDS: atenoloL 50 MG TABLET PO SCH (08:41)
[2021-09-18] MEDS ORDERED: Lidocaine -MPF 1% 5 ML AMPUL INFILT ONE (09:25)
[2021-09-18 11:17] VITALS: O2SAT 96
[2021-09-18 14:44] VITALS: BP 136/83; PULSE 79; TEMP 98
[2021-09-18] MEDS ORDERED: Vancomycin 2,000 MG/520 ML IV.SOLN IVPB SCH (18:00)
== END 2021-09-18 16:45 | disposition home or self-care (01) | DRG 862 ==
LOC: 3ANU 15:15 → EMEROOARM 15:15 → 3ANU 20:05
PROVIDERS: ADMIT Internal Medicine; ATTEND Internal Medicine